=== PATIENT | male | born 2000 | race Caucasian/White ===

== ENCOUNTER 2024-11-21 08:03 | Emergency (ER) | payer OTHER, SELFPAY ==
[2024-11-21 08:17] VITALS: BP 148/82; PULSE 72; O2SAT 98
--- NOTE | 2024-11-21 08:57 | ECG_ITS ---
Test Reason : PRO QT Blood Pressure : */* mmHG Vent. Rate : 83 BPM Atrial Rate : 83 BPM P-R Int : 122 ms QRS Dur : 86 ms QT Int : 354 ms P-R-T Axes : 56 33 45 degrees QTcB Int : 415 ms Normal sinus rhythm with sinus arrhythmia Normal ECG No previous ECGs available Referred By: Alton Verduzco Electronically Signed By: Álvaro Ballard
[2024-11-21 09:03] VITALS: BP 135/85; PULSE 104; RESP 16; TEMP 36.9; O2SAT 99
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
[2024-11-21 09:39] LABS: Appearance Urine Cloudy; Color Urine Dark Yellow; Glucose Urine UA Negative (Negative); Leukocyte Esterase Urine Negative (Negative); Nitrite Urine Negative (Negative); PH 5.5 (5.0-9.0); Specific Gravity - Urine >= 1.030 (1.005-1.025); Urine Blood Negative (Negative); Urine Ketones 80 mg/dL (Negative); Urine Protein Trace mg/dL (Neg-Trace)
[2024-11-21 09:44] LABS: Amphetamine Screen Urine Not Detected (Not Detect); Barbiturates, Urine Not Detected (Not Detect); Benzodiazepines Screen Urine Not Detected (Not Detect); Buprenorphine Scr Not Detected (Not Detect); Cannabinoid Screen Urine POSITIVE (Not Detect); Cocaine Screen Urine Not Detected (Not Detect); Fentanyl, urine Not Detected (Not Detect); Methadone Screen, Urine Not Detected (Not Detect); Opiate Screen Urine Not Detected (Not Detect); Oxycodone Screen Urine Not Detected (Not Detect); Phencyclidine Screen Urine Not Detected (Not Detect)
[2024-11-21 09:46] LABS: MANUAL DIFF FLAG NO
--- NOTE | 2024-11-21 09:55 | MHC.EDTECH ---
Patient arrived to Pod with security and main ED staff. Patient belongings placed in locker #6. Belongings have not yet been itemized by ED main staff.
[2024-11-21 10:03] LABS: Acetaminophen LAB < 3 mcg/mL (<30); Salicylate < 5.0 mg/dL (15-30)
[2024-11-21 10:03] LABS: Alanine Aminotransferase 100 U/L (0-40); Albumin Level 5.5 g/dL (3.5-5.0); Alkaline Phosphatase 48 U/L (39-117); Anion Gap 12 (12-20); Aspartate Amino Transferase 314 U/L (5-37); Bilirubin Total 0.8 mg/dL (0.0-1.0); Blood Urea Nitrogen 14 mg/dL (9-16); Carbon Dioxide 29 mmol/L (22-29); Chloride 104 mmol/L (96-108); Creatinine Clr Calc Pharmacy 120.7; Estimated Glomerular Filt Rate > 60; Ethanol < 10 mg/dL; Glucose Random 93 mg/dL (60-115); Potassium 3.8 mmol/L (3.3-5.1); Sodium 141 mmol/L (135-145); Total Protein 7.8 g/dL (6.5-8.0)
[2024-11-21 10:05] LABS: Bacteria Urine None Seen (None Seen); Hyaline Casts Urine 0-2 /LPF (0-2); RBC Urine 0-2 /HPF (0-2); WBC Urine 0-5 /HPF (0-5)
[2024-11-21 10:06] LABS: Basophils Absolute Auto 0.1 X10*3/uL (0.0-0.2); Basophils Percent Auto 0.8 % (0-2); Eosinophils Absolute Auto 0.2 X10*3/uL (0.0-0.4); Eosinophils Percent Auto 2.3 % (0-4); Hematocrit 43.2 % (42.0-52.0); Hemoglobin 15.1 g/dl (14.0-18.0); Imm Gran Abs Auto 0.02 X10*3/uL (0.00-0.03); Imm Gran Pct Auto 0.3 % (0.0-0.4); Lymphocytes Absolute Auto 1.3 X10*3/uL (1.2-4.9); Lymphocytes Percent Auto 19.1 % (20-40); Mean Corpuscular Hemoglobin 30.7 pg (27.0-33.0); Mean Corpuscular Volume 87.8 fL (80.0-98.0); Mean Platelet Volume 10.7 fL (9.4-12.4); Monocytes Absolute Auto 0.5 X10*3/uL (0.1-1.2); Monocytes Percent Auto 7.5 % (2-11); Neutrophils Absolute Auto 4.6 x10*3/uL (2.0-8.3); Platelet Count 214 X10*3/uL (160-400); Red Blood Count 4.92 X10*6/uL (4.60-5.80); Red Cell Distribution Width 13.2 % (11.0-16.0); White Blood Count 6.6 X10*3/uL (4.8-10.8)
--- NOTE | 2024-11-21 11:04 | PC.NURSE ---
medication reconciliation complete with [facility] [address] [facility] , [place] [id number] pharmacist Tim Wheeler Provider Luba notified.
--- NOTE | 2024-11-21 12:03 | PHA.MEDREC ---
Pharmacy Consult ? Medication Reconciliation Pharmacy has completed the medication reconciliation. Reviewed med rec done by nursing. Methylphenidate per claims and PDMP last picked up 10/05 x 30 day supply. Patient reports he takes its per nurse Mita Charlton.
[2024-11-21 12:21] VITALS: BP 132/88; PULSE 85; RESP 16; TEMP 36.5; O2SAT 100
--- NOTE | 2024-11-21 12:22 | PC.NURSE ---
pt reports he would like to tae his home medications at home today
--- NOTE | 2024-11-21 14:02 | MHC.CARE ---
Referral for 3 day follow up and 7 day alert faxed to [facility]. CARE Team confirmed [facility] received the referral and it has been activated. Additional community based supports were requested for pt as well.
--- NOTE | 2024-11-24 15:33 | MHC.CARE ---
RAD Team made referrals for PHP and [facility] for this pt. Will follow up tomorrow
== END 2024-11-21 12:30 | disposition home or self-care (01) ==
PROVIDERS: Emergency Provider Emergency Medicine
DX: R45.851 Suicidal ideations (principal); F12.90 Cannabis use, unspecified, uncomplicated; F43.10 Post-traumatic stress disorder, unspecified; Z79.899 Other long term (current) drug therapy
CPT/HCPCS: 36415; 80053; 80143; 80179; 80307; 81001; 85025; 93005; 99285; S9485

== ENCOUNTER → 2024-11-21 08:57 | Outpatient (BNV) | payer OTHER, SELFPAY | PROVIDERS: Emergency Provider Emergency Medicine; Visit Provider Internal Medicine Cardiovascular Disease | DX: Z13.6 Encounter for screening for cardiovascular disorders (principal) | CPT/HCPCS: 93010 ==